=== PATIENT | female | born 1990 | race Caucasian/White ===

== ENCOUNTER 2019-04-29 18:40 | Emergency (ER) | payer MEDICAID ==
[2019-04-29 18:56] VITALS: BP 102/77; PULSE 76; O2SAT 97
--- NOTE | 2019-04-29 19:24 | ERPHSYRPT ---
- History of Present Illness Time Seen by Provider: 04/29/19 19:19 Source: patient Exam Limitations: no limitations Patient Subjective Stated Complaint: clear drainage and burning to left eye since this am. Triage Nursing Assessment: ambulated to room per self. skin w/d, color normal. left eye slightly swollen, red, clear drainage noted. Physician History: clear drainage and burning to left eye since this am. Timing/Duration: today Location: left eye Severity: mild Apparent Injury: no Associated Symptoms: sensitivity to light, redness, matting Visual Assistive Devices: None Chemical Exposure: No Trauma: No Welding Arc/Tanning Bed Exposure: No Allergies/Adverse Reactions: sulfamethoxazole [From Bactrim] Allergy (Verified 04/29/19 18:50) trimethoprim [From Bactrim] Allergy (Verified 04/29/19 18:50) Hx Tetanus, Diphtheria Vaccination/Date Given: No Hx Influenza Vaccination/Date Given: No Hx Pneumococcal Vaccination/Date Given: No - Review of Systems Constitutional: No Symptoms Eyes: Eye Redness, Tearing, Foreign Body Sensation Ears, Nose, & Throat: No Symptoms Respiratory: No Symptoms Cardiac: No Symptoms Abdominal/Gastrointestinal: No Symptoms - Past Medical History Pertinent Past Medical History: Yes Respiratory History: Asthma - Past Surgical History Past Surgical History: No - Social History Smoking Status: Never smoker Exposure to second hand smoke: No Drug Use: none Patient Lives Alone: No - Female History Hx Last Menstrual Period: two weeks ago Hx Now: No - Nursing Vital Signs Nursing Vital Signs: Initial Vital Signs Temperature 97.6 F 04/29/19 18:47 Pulse Rate 76 04/29/19 18:47 Respiratory Rate 16 04/29/19 18:47 Blood Pressure 102/77 04/29/19 18:47 O2 Sat by Pulse Oximetry 97 04/29/19 18:47 Pain Scale Pain Intensity 7 - Physical Exam General Appearance: no apparent distress Vision Acuity Degree Evaluation Phase: Uncorrected Vision Acuity Right Eye: 20/30 Vision Acuity Left Eye: 20/30 Eye Exam: left eye: conjunctival inflammation, eyelid inflammation, bilateral eye: normal inspection, PERRL, EOMI Ears, Nose, Throat Exam: normal ENT inspection SpO2: 97 - Course Nursing assessment & vital signs reviewed: Yes - Progress Progress: unchanged Counseled pt/family regarding: diagnosis, need for follow-up - Departure Departure Disposition: Home Clinical Impression: Hordeolum externum (stye) Qualifiers: Laterality: left Eyelid: lower Qualified Code(s): H00.015 - Hordeolum externum left lower eyelid Conjunctivitis Qualifiers: Conjunctivitis type: acute Acute conjunctivitis type: bacterial Laterality: left Qualified Code(s): H10.32 - Unspecified acute conjunctivitis, left eye Condition: Stable Critical Care Time: No Instructions: Conjunctivitis (Pinkeye) (DC), Stye (Hordeolum) Additional Instructions: Discharge/Care Plan KJ IRIZARRY was seen on 04/29/19 in the Emergency Room. The patient was counseled regarding Diagnosis,Lab results, Imaging studies, need for follow up and when to return to the Emergency Room. Prescriptions given: Discharge Note I have spoken with the patient and/or caregivers. I have explained the patient' s condition, diagnosis and treatment plan based on the information available to me at this time. I have answered the patient's and/or caregiver's questions and addressed any concerns. The patient and/or caregivers have as good understanding of the patient's diagnosis, condition and treatment plan as can be expected at this point. The vital signs have been stable. The patient's condition is stable and appropriate for discharge from the emergency department. The patient will pursue further outpatient evaluation with the primary care physician or other designated or consulting physician as outlined in the discharge instructions. The patient and/or caregivers are agreeable to this plan of care and follow-up instructions have been explained in detail. The patient and/or caregivers have received these instruction. The patient/and or caregivers are aware that any significant change in condition or worsening of symptoms should prompt an immediate return to this or the closest emergency department or call 911. Prescriptions: Tobramycin/Dexamethasone [Tobradex St Eye Drops] 3 drops OP QID #5 drops.susp
== END 2019-04-29 19:29 | disposition home or self-care (01) ==
LOC: ED 18:40
DX: H00.015 Hordeolum externum left lower eyelid (principal); H10.32 Unspecified acute conjunctivitis, left eye
CPT/HCPCS: 99283